=== PATIENT | female | born 1995 | race Caucasian/White ===

== ENCOUNTER 2016-12-14 14:15 | Emergency (ER) | payer OTHER ==
[~2016-12-14] VITALS: Ht 167.6 cm; Wt 63.5 kg
[2016-12-14 15:00] VITALS: BP 115/81
[2016-12-14] MEDS ORDERED: Ketorolac 30mg Inj IM ONE (15:00)
--- NOTE | 2016-12-14 15:00 | Emergency Room Report ---
History of Present Illness General Chief Complaint: Neck Pain Source: Patient Present Illness HPI 21 y/o female c/o left sided shoulder and neck pain x 3 months but worse in past 2 days. States she has muscle tension in left shoulder that is worse with movement and better with rest an icy hot patches. States had an increase in sxs yesterday when she woke up with a stiff neck assoc with muscle spasm of left scapular region. Denies any trauma, extremity weakness, incontinence, foot drop , saddle anesthesia, numbness, or paralysis. Allergies: Coded Allergies: No Known Allergies (Unverified , 12/14/16) Patient History Pertinent Family History: none Last Menstrual Period: 11/23/16 Now: No : 0 Para: 0 Immunizations: UTD Reviewed Nursing Documentation: PMH: Agreed, PSxH: Agreed Nursing Documentation-PMH Past Medical History: No Stated History Review of Systems All Other Systems: negative except mentioned in HPI Physical Exam Vital Signs Date Time Temp Pulse Resp B/P Pulse Ox O2 Delivery O2 Flow Rate FiO2 12/14/16 14:26 99 18 115/81 100 Room Air Sp02 EP Interpretation: reviewed, normal General Appearance: no apparent distress, alert, GCS 15, non-toxic Head: normocephalic, atraumatic Eyes: bilateral eye PERRL, bilateral eye normal inspection ENT: hearing grossly normal, normal pharynx, no angioedema, normal voice Neck: full range of motion, supple/symm/no masses Respiratory: chest non-tender, lungs clear, normal breath sounds, speaking full sentences Cardiovascular #1: regular rate, rhythm, no edema Musculoskeletal: back normal, gait/station normal, normal range of motion, tender - left scapular region with muscle spasm Neurologic: alert, oriented x3, responsive, motor strength/tone normal, sensory intact, speech normal Psychiatric: judgement/insight normal, memory normal, mood/affect normal, no suicidal/homicidal ideation Skin: normal color, no rash, warm/dry, well hydrated Medical Decision Making PA Attestation Dr. Smith is my supervising physician with whom patient management has been discussed with. Diagnostic Impression: Primary Impression: Neck pain Additional Impression: Muscle spasm of back ER Course Pt. presents to the ED c/o neck pain Ddx considered but are not limited to fracture, contusion, strain, sprain, spasm Vital signs: are WNL, pt. is afebrile H&PE are most consistent with muscle spasm of left scapular region ORDERS: none required at this time, the diagnosis is clinical ED INTERVENTIONS: none required at this time. DISCHARGE: At this time pt. is stable for d/c to home. Will provide printed patient care instructions, and any necessary prescriptions. Care plan and follow up instructions have been discussed with the patient prior to discharge. Last Vital Signs Date Time Temp Pulse Resp B/P Pulse Ox O2 Delivery O2 Flow Rate FiO2 12/14/16 15:00 18 115/81 100 Room Air 12/14/16 14:26 99 Status: unchanged Disposition: HOME, SELF-CARE Condition: Stable Scripts Methocarbamol* (ROBAXIN-750*) 750 Mg Tablet 750 MG PO TID, #30 TAB 0 Refills Prov: KELLIE MORRISSEY P.A. 12/14/16 Naproxen* (NAPROSYN*) 500 Mg Tablet 500 MG ORAL TWICE A DAY, #30 TAB Prov: KELLIE MORRISSEY P.A. 12/14/16 KELLIE MORRISSEY P.AOrtiz Dec 14, 2016 14:59
[2016-12-14] MEDS ORDERED: NAPROSYN500 M1 ORAL (15:01)
[2016-12-14] MEDS ORDERED: ROBAXIN-750750 MG PO (15:01)
== END 2016-12-14 15:00 | disposition home or self-care (01) ==
LOC: EMR 14:47
DX: M54.2 Cervicalgia (principal); M62.830 Muscle spasm of back; M25.512 Pain in left shoulder
CPT/HCPCS: 96372; 99284; J1885